=== PATIENT | male | born 1975 | race Caucasian/White ===

== ENCOUNTER 2018-10-22 11:51 | Emergency (ER) | payer SELFPAY ==
[~2018-10-22] VITALS: Ht 188 cm; Wt 94.0 kg
[~2018-10-22 11:51] MED LIST: RTPRO5
[2018-10-22 12:06] VITALS: BP 157/99; PULSE 79; RESP 18; Ht 188 cm; Wt 94.0 kg
== END 2018-10-22 14:52 | disposition left against medical advice (07) ==
LOC: FTE 11:51
DX: Z53.21 Procedure and treatment not carried out due to patient leaving prior to being seen by health care provider (principal)